=== PATIENT | female | born 1950 | race Caucasian/White ===

== ENCOUNTER 2019-08-27 07:58 | Inpatient (IN) ==
--- NOTE | 2019-08-09 16:00 | PAT Medication Instructions ---
Medication Instructions Date of Service August 09, 2019 Home Medications albuterol sulfate 0.63 mg INHALATION QID PRN albuterol sulfate 1 puff INHALATION Q6H PRN cholecalciferol (vitamin D3) [Vitamin D3] 5,000 unit PO QAM esomeprazole magnesium [Nexium] 20 mg PO QAM hydrochlorothiazide 12.5 mg PO QAM oxybutynin chloride 5 mg PO QAM risedronate 35 mg PO WK ASK your prescriber and surgeon risedronate 35 mg PO WK DO NOT take the morning of surgery cholecalciferol (vitamin D3) [Vitamin D3] 5,000 unit PO QAM hydrochlorothiazide 12.5 mg PO QAM oxybutynin chloride 5 mg PO QAM Take morning of surgery With a small sip of water, OTHERWISE NOTHING TO EAT OR DRINK AFTER MIDNIGHT: albuterol sulfate 0.63 mg INHALATION QID PRN (if needed) albuterol sulfate 1 puff INHALATION Q6H PRN (use if needed; please bring with you to hospital day of surgery if possible) esomeprazole magnesium [Nexium] 20 mg PO QAM Take evening before surgery albuterol sulfate 0.63 mg INHALATION QID PRN (if needed) albuterol sulfate 1 puff INHALATION Q6H PRN (if needed) Other Notes If you have any questions please call us at [phone] or [phone] or [phone] or [phone]
--- NOTE | 2019-08-10 13:22 | Anesthesiology Consultation ---
Date of Service August 10, 2019 Assessment & Plan (1) Encounter for pre-operative examination: *Possible difficult spinal due to body habitus and hx as below S/P L TKA 06/2014 @ [facility] -- SAB successful after 3 attempts. Chart Review Chart Review: Acceptable Risk for Surgery and Patient seen in Pre Admission Testing Teaching & Discussion Instructed NPO after midnight before surgery, except medications with 15 cc of water. Medication instructions provided according to the PAT guidelines. History Surgery Operation Date: 08/27/19 10:40 Proposed Procedures p Right Total Knee Arthroplasty - Shantanu Regalado DO Height/Weight Height: 5 ft 4 in Weight: 114 kg Allergies Allergy/AdvReac Type Severity Reaction Status Date / Time No Known Drug Allergies Allergy Unknown . Verified 08/05/19 07:58 Medications Home Medications Medication Instructions Recorded Confirmed Last Taken albuterol sulfate 0.63 mg INHALATION QID PRN 08/05/19 08/05/19 Unknown albuterol sulfate 1 puff INHALATION Q6H PRN 08/05/19 08/05/19 Unknown cholecalciferol (vitamin D3) 5,000 unit PO QAM 08/05/19 08/05/19 Unknown [Vitamin D3] esomeprazole magnesium [Nexium] 20 mg PO QAM 08/05/19 08/05/19 Unknown hydrochlorothiazide 12.5 mg PO QAM 08/05/19 08/05/19 Unknown oxybutynin chloride 5 mg PO QAM 08/05/19 08/05/19 Unknown risedronate 35 mg PO WK 08/05/19 08/05/19 Unknown Past Medical History Medical History (Updated 08/11/19 @ 08:34 by Josh Appiah) Chronic obstructive pulmonary disease No daily inhaler, uses albuterol inhalers mostly in winter months. GERD (gastroesophageal reflux disease) Hyperlipidemia Hypertension Osteoarthritis Urinary, incontinence, stress female Exercise / Class Metabolic Activity III < 4 Walking/Shop/Light housework (+SOB with ambulation over longer distances (grocery shopping) pt feels 2/2 knee pain and obesity, denies chest pain. 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 History of appendectomy History of cholecystectomy History of colonoscopy History of esophagogastroduodenoscopy (EGD) History of tonsillectomy and adenoidectomy History of tooth extraction History of total knee replacement LEFT + REVISION Past Anesthesia History No Hx of Anesthesia Complications and No Family Hx of Anesthesia Complications History of PONV No Hx of PONV and Hx of Motion Sickness Social History Smoking Status: Never smoker Do You Dip or Chew Tobacco: No Hx Alcohol Use: Yes alcohol intake frequency: holidays/special occasions only Hx Substance Use: No substance use type: does not use Review of Systems Pt denies any recent chest pain, shortness of breath above baseline, palpitations, cough, fever or URI. Physical Exam Vital Signs BP: 139/84 P: 87bpm SPO2: 95% RA T: 98.4 F R: 16 Constitutional + morbidly obese ENMT Mouth: + dentures (upper and lower) and + edentulous Thyromental Distance: < 3.5 Finger Breadths (3) Mallampati Class: III Neck normal visual inspection; neck extension not limited Respiratory normal respiratory effort Auscultation: lungs clear to auscultation bilaterally Cardiovascular Rate/Rhythm: regular rate and regular rhythm Heart Sounds: no murmur Vessels: no carotid bruit Extremities: + edema (trace pitting L>R) Testing Laboratory Results 08/10/19 13:36 08/10/19 13:36 PT 10.5 Seconds (9.0-12.0) 08/10/19 13:36 INR 1.0 (0.9-1.1) 08/10/19 13:36 APTT 27.1 Seconds (21.0-31.0) 08/10/19 13:36 Blood Type O Positive 08/10/19 13:36 Antibody Screen NEGATIVE 08/10/19 13:36 Electrocardiogram Date: 08/10/19 Findings: + NSR @ (77bpm) *unconfirmed Chest X-Ray Date: 08/10/19 Findings: + NAD Mild right hemidiaphragmatic elevation is unchanged.
--- NOTE | 2019-08-10 14:07 | XRay Report ---
XR chest Pre-admission PA/Lat HISTORY: 69 years-old Female pat preoperative exam. No acute chest complaints COMPARISON: Chest radiograph 06/03/2014 TECHNIQUE: PA and lateral views of the chest FINDINGS: Cardiomediastinal and hilar silhouettes are within normal limits. Mild right hemidiaphragmatic elevat ion is unchanged. There is no pneumothorax, pleural effusion, focal airspace consolidation or overt p ulmonary edema. Degenerative changes of the shoulders and spine. Surgical clips project over the uppe r abdomen. IMPRESSION: No acute process. The above report was generated using voice recognition software. It may contain grammatical, syntax o r spelling errors. Electronically signed by: Mele Herrera M.D. 08/10/2019 2:05 PM
[2019-08-10 14:33] LABS: Basophils # (auto) 0.03 K/uL (0-0.2); Basophils % (auto) 0.3 %; Eosinophils % (auto) 1.1 %; Hematocrit (blood only) 38.4 % (37-47); Hemoglobin 12.8 g/dL (12.0-16.0); Immature Granulocytes # (auto) 0.02 K/uL (0.00-0.02); Immature Granulocytes % (auto) 0.2 %; Lymphocytes # (auto) 2.23 K/uL (1.2-3.4); Lymphocytes % (auto) 25.5 %; Mean Corpuscular Hemoglobin 29.9 pg (25-34); Mean Corpuscular Hgb Conc 33.3 g/dL (32-36); Mean Corpuscular Volume 89.7 fL (80-100); Mean Platelet Volume 10.8 fL (7.4-10.4); Monocytes # (auto) 0.68 K/uL (0.11-0.59); Monocytes % (auto) 7.8 %; Neutrophils # (auto) 5.69 K/uL (1.4-6.5); Neutrophils % (auto) 65.1 %; Platelet Count 204 K/uL (130-400); RDW Coefficient of Variation 13.5 % (11.5-14.5); RDW Standard Deviation 44.3 fL (36.4-46.3); Red Blood Count 4.28 M/uL (4.2-5.4); White Blood Count 8.75 K/uL (4.8-10.8)
[2019-08-10 14:44] LABS: Partial Thromboplastin Time 27.1 Seconds (21.0-31.0); Prothrombin Time 10.5 Seconds (9.0-12.0)
[2019-08-10 15:04] LABS: BUN Creatinine Ratio 15.2 (10-20); Calcium 9.3 mg/dl (8.5-10.1); Creatinine Clr Calc Pharmacy 73.9 ml/min; Est GFR (African American) 76.6; Est GFR (Non-African American) 66.1; Potassium 3.8 mmol/L (3.5-5.1)
--- NOTE | 2019-08-26 07:59 | History & Physical Report ---
Date of Service August 26, 2019 Assessment & Plan (1) Osteoarthritis of right knee: We will proceed with a right total knee arthroplasty. Postoperatively she will be started on aspirin for DVT prophylaxis. She will be kept overnight in the hospital for postoperative medical management. She plans to go to outpatient physical therapy at [facility] in [place] upon discharge. Present on Admission?: Yes History of Present Illness Chief Complaint: Primary osteoarthritis of the right knee Primary Care Provider: Dank Benedict is a pleasant 69-year-old female who is been having chronic increasing right knee pain. X-rays and clinical examination have been diagnostic for primary osteoarthritis of the right knee. After failing conservative treatment, she has elected proceed with a right total knee arthroplasty. She does have a history of 9 surgeries to her left knee including multiple revision surgery. She is now doing well with her left knee. Her most recent revision was done in 2013. Allergies Allergy/AdvReac Type Severity Reaction Status Date / Time No Known Drug Allergies Allergy Unknown . Verified 08/05/19 07:58 Home Medications Home Medications Medication Instructions Recorded Confirmed Type albuterol sulfate 0.63 mg INHALATION QID PRN 08/05/19 08/05/19 History albuterol sulfate 1 puff INHALATION Q6H PRN 08/05/19 08/05/19 History cholecalciferol (vitamin D3) 5,000 unit PO QAM 08/05/19 08/05/19 History [Vitamin D3] esomeprazole magnesium [Nexium] 20 mg PO QAM 08/05/19 08/05/19 History hydrochlorothiazide 12.5 mg PO QAM 08/05/19 08/05/19 History oxybutynin chloride 5 mg PO QAM 08/05/19 08/05/19 History risedronate 35 mg PO WK 08/05/19 08/05/19 History Past Med/Surg History Medical History Chronic obstructive pulmonary disease No daily inhaler, uses albuterol inhalers mostly in winter months. 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: No Beliefs That Will Affect Care: None Current Living Situation: Spouse Feels Safe at Home: Yes Smoking Status: Never smoker Second Hand Exposure: Yes ; Hx Alcohol Use: Yes Hx Substance Use: No Review of Systems All systems reviewed & are unremarkable except as noted in HPI & below Physical Exam Constitutional: WD/WN, vitals as above Eyes: PERRL, conjunctivae normal, anicteric sclerae ENMT: external ear and nose normal, oropharynx normal Neck: trachea midline, no thyromegaly Respiratory: normal respiratory effort Cardiovascular: RRR, no murmur, no edema Gastrointestinal (Abdomen): normal bowel sounds, soft, nontender, no hepatosplenomegaly Musculoskeletal: On physical examination of the right knee there is a trace effusion. There is near full range of motion and no evidence of instability. There is significant tenderness palpation along the medial and lateral joint lines and over the distal femoral condyles. Psychiatric: A+Ox3, euthymic affect Results & Data Diagnostic Findings Radiographs of the right knee demonstrate advanced osteoarthritis with joint space narrowing osteophyte formation and [id number] articulation.
[~2019-08-27 07:58] MED LIST: ACETAMINOPHEN 500 MG TAB PO SCH; BUPIVACAINE 0.5 % 5 MG/1 ML PF 10ML VIAL ONE; BUPIVACAINE/EPINEPHRINE 0.25% 1:200,000 30 ML VIAL ONE; CEFAZOLIN 2000MG 2,000 MG/15 ML SYR IV SCH; DEXAMETHASONE SOD INJ 4 MG/ML VIAL ONE; FAMOTIDINE 20 MG TAB PO SCH; GABAPENTIN 300 MG CAP PO SCH; LR 500ML BOLUS, THEN 15ML/HR IV SCH; LR 60ML/HR IV SCH; ROPIVACAINE 0.5% HCL/PF 150 MG, BUPIVACAINE 0.5% MPF 30 ML, EPINEPHrine 30MG/30ML (OR U... INSTIL SCH; TRANEXAMIC ACID 1,000 MG **IV Intra-op IV SCH; TRANEXAMIC ACID 1,000 MG **IV Pre-op IV SCH; dexAMETHasone 4 MG TAB PO SCH
--- NOTE | 2019-08-27 08:06 | History & Physical Bridge Note ---
Date of Service August 27, 2019 History & Physical Bridge Note I have examined the patient, reviewed the History & Physical and in the interval since the performance of the History & Physical I have noted the following changes of clinical significance: no changes noted
[2019-08-27] MEDS ORDERED: MIDAZOLAM HCL 1 MG/ML 2ML VIAL ONE ×2 (09:37→10:51)
[2019-08-27] MEDS ORDERED: fentaNYL citrate 100 MCG/2 ML VIAL ONE (09:37)
[2019-08-27] MEDS ORDERED: PROPOFOL IV EMULSION 10 MG/ML 20 ML VIAL IV ONE (09:39)
[2019-08-27] MEDS ORDERED: LIDOCAINE HCL 2% 2 ML VIAL/AMP(20MG/ML) INFIL ONE (09:39)
[2019-08-27] MEDS ORDERED: ORTHO JOINT ANESTHETIC ONE (10:08)
[2019-08-27] MEDS ORDERED: ONDANSETRON INJ 2 MG/ML 2 ML VIAL IV PRN ×2 (10:54→13:45)
[2019-08-27] MEDS ORDERED: ePHEDrine sulfate 50 MG/ML AMP IV PRN (10:54)
[2019-08-27] MEDS ORDERED: fentaNYL citrate 100 MCG/2 ML VIAL IV PRN (10:54)
[2019-08-27] MEDS ORDERED: ATROPINE SULFATE 0.1 MG/ML 10ML SYR IV PRN (10:54)
--- NOTE | 2019-08-27 11:58 | Operative Report ---
PG Post Operative Report Pre & Post Diagnosis Operation Date: 08/27/19 09:20 Pre-Op Diagnosis: Right Knee Degenerative Joint Disease Post-Op Diagnosis: Right Knee Degenerative Joint Disease I identified the patient and participated in the time-out.: Yes Procedure Operation Date: 08/27/19 09:20 Actual Procedures p Right Total Knee Arthroplasty(Right) - Shantanu Regalado DO Surgeon Shantanu Regalado DO Cremator Shantanu Salinas PAC Estimated Blood Loss 20 Findings Consistent with Post-Op Diagnosis Specimens Right femoral and tibial bone Complications none Disposition Disposition: Recovery Room Jaquan Benedict is a pleasant 69-year-old female who presented my office with chronic increasing right knee pain. X-rays and clinical examination were diagnostic for primary osteoarthritis of the right knee. After failing conservative treatment, she elected to proceed with a right total knee arthroplasty. Description of Procedure Implants used: I used a [employer]omet Vanguard total knee arthroplasty system with a size 67.5 femur, 67 tibia, 31 patella, and a size 10 PS polyethylene bearing. All components were cemented in place with Palacos G cement. The patient arrived [facility] for the above procedure. There were seen in the preoperative holding area and the operative extremity was identified and signed. There were given a preoperative antibiotic, a spinal anesthetic and an adductor nerve block. There were taken back to the operating room and laid on the table in supine position. There were given basic sedation. The operative knee was then prepped and draped in sterile fashion. A timeout was done, and the patient and the operative extremity was properly identified. A midline incision was made directly over the patella. Dissection was taken down to the extensor mechanism. A subvastus arthrotomy was used. The medial retinaculum was released and the fat pad was mostly left intact. The knee was flexed and the ACL, PCL, and meniscus were removed. A drill was sent down the center of the femoral canal followed by an intramedullary arnulfo. Off that arnulfo a distal femoral cutting block was placed. 9 mm was resected off the distal femur at 5 of valgus. A posterior referencing AP sizing guide was then placed on the distal femur. The femur measured to be a size 67.5. 2 drill holes were placed in 3 of external rotation. A 4-in-1 cutting block was then impacted into place. Anterior posterior and chamfer cuts were then made. The posterior stabilizing box guide was then impacted into place and the box was resected for the posterior stabilizing component. The proximal tibia was then exposed. A drill was sent down the center of the tibial canal followed by an intramedullary arnulfo. Off that arnulfo a proximal tibial resection guide was placed. The proximal tibia was then resected. The tibia measured to be a size 67. The tibial plate was then placed in the appropriate rotation and the tibia was punched. The posterior aspect of the knee was then opened up and any additional meniscus fragments and osteophytes were removed. Trial components were then placed. I used a size 10 PS polyethylene insert. The knee was brought through a full range of motion and felt to be stable. The patella was then everted and 8 mm was resected off the posterior aspect of the patella. The patella measured to be a size 31. 3 peg holes were then drilled. A trial patella was placed. The knee was once again brought through a full range of motion and felt to be stable. Trial components were then removed. The surrounding soft tissues were injected with 100 cc of an orthopedic pain control cocktail. All components were then cemented into place with Palacos G cement. The final polyethylene insert was then snapped into place and the anterior bar was locked. Once cement was dry the tourniquet was deflated. Hemostasis was obtained. A dilute betadyne lavage was then done for 3 minutes. The joint was then irrigated with normal saline solution. The subvastus arthrotomy was then closed with #1 Vicryl suture. The skin was closed with 2-0 Vicryl, 3-0V lock suture, and maria m. A soft compressive dressing was placed. The patient was then transferred to a hospital bed and taken to the postanesthesia care unit in stable condition. They tolerated the procedure well. I attest to the content of the Intraoperative Record and any orders documented therein. Any exceptions are noted below.
--- NOTE | 2019-08-27 13:13 | XRay Report ---
XR knee RT 1 or 2V routine CLINICAL HISTORY: Surgical Post Op COMPARISON: May 2019 DISCUSSION: There are postsurgical changes of a total right knee arthroplasty and patellar resurfacin g. The femoral tibial components appear well seated. Overlying skin maria m are evident. There is The soft tissues consistent with recent surgery. IMPRESSION: Postsurgical changes of a total right knee arthroplasty. Electronically signed by: Edi Oneil M.D. 08/27/2019 1:12 PM
[2019-08-27] MEDS ORDERED: HYDROmorphone INJ 0.5 MG/0.5 ML SYR IV PRN (13:45)
[2019-08-27] MEDS ORDERED: ALBUTEROL HFA 8 GM INHALER INH PRN (13:45)
[2019-08-27] MEDS ORDERED: bisacodyL 10 MG SUPP PR PRN (13:45)
[2019-08-27] MEDS ORDERED: NALOXONE HCL 0.4 MG/1 ML VIAL/CARP IV PRN (13:45)
[2019-08-27] MEDS ORDERED: SODIUM CHLORIDE 0.9% 1000ML 1,000 ML IV SCH (13:45)
[2019-08-27] MEDS ORDERED: MAGNESIUM HYDROXIDE SUSP 30 ML UDC PO PRN (13:45)
[2019-08-27] MEDS ORDERED: METOCLOPRAMIDE HCL INJ 5 MG/ML 2 ML VIAL IV PRN (13:45)
[2019-08-27] MEDS ORDERED: ALBUTEROL 0.083% NEBU SOLN 3 ML VIAL INH PRN (14:05)
[2019-08-27] MEDS: KETOROLAC TROMETHAMINE 15 MG/ML VIAL IV SCH ×2 (14:28→20:09)
--- NOTE | 2019-08-27 14:55 | Anesthesiology Progress Note ---
Date of Service August 27, 2019 Anesthesia Post Procedure Vital Signs Vital Signs: Temp Pulse Resp BP Pulse Ox 08/27/19 14:30 36.3 C L 72 14 120/79 97 08/27/19 14:00 36.7 C 77 14 119/71 77 L 08/27/19 13:30 36.4 C L 82 14 121/72 96 08/27/19 13:20 79 14 114/74 97 08/27/19 13:10 36.4 C L 77 15 105/69 99 08/27/19 13:00 81 16 121/72 96 08/27/19 12:50 80 18 122/78 91 08/27/19 12:40 82 16 126/68 94 08/27/19 12:30 82 16 114/65 94 08/27/19 12:22 36.0 C L 88 16 118/61 97 08/27/19 09:00 36.7 C 98 H 148/96 H 99 Pain Intensity Right Knee: Pain Intensity: 7 Transfer of Care Handoff Completed per policy Notes Mental Status: alert / awake / arousable Patient Amnestic to Procedure: Yes Nausea / Vomiting: adequately controlled Pain: adequately controlled Airway Patency, RR, SpO2: stable & adequate BP & HR: stable & adequate Hydration State: stable & adequate Neuraxial Anesthesia: was administered and sensory block is resolving Anesthetic Complications: no major complications apparent and Pt Satisfied with anesthetic care
[2019-08-27] MEDS: CEFAZOLIN 2000MG 2,000 MG/15 ML SYR IV SCH ×2 (16:15→23:12)
[2019-08-27] MEDS: OXYCODONE HCL IR 5 MG TAB (IMMEDIATE RELEASE) PO PRN ×2 (17:26→21:53)
[2019-08-27] MEDS: ACETAMINOPHEN 500 MG TAB PO SCH (18:16)
[2019-08-27] MEDS: ASPIRIN 81 MG ECTAB PO SCH (20:09)
[2019-08-27] MEDS: DOCUSATE SODIUM 100 MG CAP PO SCH (20:09)
[2019-08-27] MEDS ORDERED: SENNA 8.6 MG TAB PO SCH (21:00)
[2019-08-27] MEDS ORDERED: PNEUMOCOCCAL Polysaccharide Vaccine 25mcg/0.5mL vial/Syr IM ONE (21:15)
[2019-08-27 23:36] VITALS: O2SAT 94
[2019-08-28] MEDS: KETOROLAC TROMETHAMINE 15 MG/ML VIAL IV SCH ×2 (01:53→07:39)
[2019-08-28 03:43] VITALS: BP 107/62; PULSE 81; TEMP 97.7
[2019-08-28] MEDS: ACETAMINOPHEN 500 MG TAB PO SCH (05:32)
[2019-08-28 06:33] LABS: Hematocrit (blood only) 33.9 % (37-47); Hemoglobin 10.8 g/dL (12.0-16.0); Mean Corpuscular Hemoglobin 29.1 pg (25-34); Mean Corpuscular Hgb Conc 31.9 g/dL (32-36); Mean Corpuscular Volume 91.4 fL (80-100); Platelet Count 222 K/uL (130-400); RDW Coefficient of Variation 13.1 % (11.5-14.5); RDW Standard Deviation 44.3 fL (36.4-46.3); Red Blood Count 3.71 M/uL (4.2-5.4); White Blood Count 12.27 K/uL (4.8-10.8)
[2019-08-28 07:09] LABS: BUN Creatinine Ratio 16.1 (10-20); Calcium 8.9 mg/dl (8.5-10.1); Est GFR (African American) 56.8; Potassium 4.1 mmol/L (3.5-5.1)
[2019-08-28] MEDS ORDERED: dexAMETHasone 10 MG in SYRINGE 0 ML IV SCH (08:00)
--- NOTE | 2019-08-28 08:05 | Orthopedic Progress Note ---
Date of Service August 28, 2019 Assessment & Plan (1) History of total right knee replacement: Overall she is doing very well. She not having much pain in her right knee. She did well with physical therapy this morning. The nursing staff will change her dressing today. She can be discharged home later today. She is on aspirin for DVT prophylaxis. She will get outpatient physical therapy and follow-up with orthopedics in 2 weeks. Present on Admission?: Yes Anson Benedict was seen and examined at bedside this morning. Overall she is doing very well. She is having some soreness in the knee. She already had physical therapy this morning. She is happy with her progress and has no complaints. Physical Exam Musculoskeletal: On physical examination of the left knee, the dressing has been reinforced. She has active dorsiflexion and foot plantarflexion of her right ankle. Her legs out in full extension with a pillow under her ankle. Results & Data Vital Signs (Past 12 Hours) Vital Signs Temp Pulse Resp BP Pulse Ox 08/28/19 07:50 36.5 C 81 17 107/62 94 08/28/19 07:32 36.4 C L 66 16 108/67 98 08/28/19 03:41 36.5 C 81 17 107/62 94 08/27/19 23:35 36.4 C L 65 17 127/73 94 Laboratory Results H & H 08/10/19 08/28/19 Range/Units 13:36 06:08 Hgb 12.8 10.8 L (12.0-16.0) g/dL Hct 38.4 33.9 L (37-47) % Coagulation 08/10/19 Range/Units 13:36 INR 1.0 (0.9-1.1) Diagnostic Findings Postoperative x-rays of the right knee show the prosthesis to be in anatomic alignment without any evidence of fracture, dislocation, or loosening. PG Care Time/CCT Total # of Minutes Spent Total Time Spent with Patient: Total time spent is greater than 50% in coordination of care (as documented) at patient's floor/unit and/or counseling patient:
--- NOTE | 2019-08-28 08:07 | Discharge Summary ---
Date of Service August 28, 2019 Admission HPI Per Admitting Provider Marichuy is a pleasant 69-year-old female who is been having chronic increasing right knee pain. X-rays and clinical examination have been diagnostic for primary osteoarthritis of the right knee. After failing conservative treatment, she has elected proceed with a right total knee arthroplasty. She does have a history of 9 surgeries to her left knee including multiple revision surgery. She is now doing well with her left knee. Her most recent revision was done in 2013. Principal Diagnosis Right total knee arthroplasty Discharge Data Allergies Allergy/AdvReac Type Severity Reaction Status Date / Time No Known Drug Allergies Allergy Unknown . Verified 08/27/19 08:57 Consultations 08/27/19 13:45 Consult Case Management - Discharge Planning Routine Procedures Performed Operation Date: 08/27/19 09:20 Actual Procedures p Right Total Knee Arthroplasty(Right) - Shantanu Regalado DO Ordered Studies 08/27/19 05:00 US - OR guided needle placemen Routine Hospital Course (1) History of total right knee replacement: On August 27, 2019 Marichuy arrived at [facility] and underwent a right total knee arthroplasty without complication. She had a spinal anesthetic. Postoperatively she was discharged to general orthopedic floors. Her hospital course is uneventful. On postop day #1 her H&H was stable and her pain was well controlled. She was able to ambulate well with physical therapy. She was then discharged to home with oral pain medications and aspirin for DVT prophylaxis. She will follow-up with orthopedics in 2 weeks. Total Time Total Time Spent Total Time Spent (In Minutes): 20 Discharge Plan Discharge Items Reason For Visit: Right Knee Degenerative Joint Disease Medications and DC Order Prescriptions: No Action hydrochlorothiazide 12.5 mg Capsule 12.5 mg PO QAM RF: 0 oxybutynin chloride 5 mg Tablet 5 mg PO QAM RF: 0 esomeprazole magnesium [Nexium] 20 mg Capsule,Delayed Release(Dr/Ec) 20 mg PO QAM RF: 0 risedronate 35 mg Tablet 35 mg PO WK RF: 0 cholecalciferol (vitamin D3) [Vitamin D3] 5,000 unit Tablet 5,000 unit PO QAM RF: 0 albuterol sulfate 0.63 mg/3 mL Solution For Nebulization 0.63 mg INHALATION QID PRN (Reason: SHORT OF BREATH) RF: 0 albuterol sulfate 90 mcg/actuation Hfa Aerosol Inhaler 1 puff INHALATION Q6H PRN (Reason: SHORT OF BREATH) RF: 0 Admission Data Admit Date/Time: 08/27/19 12:27 Attending Provider: Shantanu Regalado Admit Provider: Shantanu Regalado Primary Care Provider: Dank Tony Other Interventions: Discharge Summary Assessment (RN) Last Done: 08/28/19 07:50
[2019-08-28] MEDS: ASPIRIN 81 MG ECTAB PO SCH (08:44)
[2019-08-28] MEDS: DOCUSATE SODIUM 100 MG CAP PO SCH (08:44)
[2019-08-28] MEDS: OXYCODONE HCL IR 5 MG TAB (IMMEDIATE RELEASE) PO PRN (08:45)
[2019-08-28] MEDS ORDERED: hydroCHLOROthiazide 25 MG TAB PO SCH (09:00)
[2019-08-28] MEDS ORDERED: OXYBUTYNIN CHLORIDE 5 MG TAB PO SCH (09:00)
[2019-08-28] MEDS ORDERED: MULTIVITAMIN TAB PO SCH (09:00)
--- NOTE | 2019-08-28 10:12 | Anesthesiology Progress Note ---
Date of Service August 28, 2019 Anesthesia Post Procedure Vital Signs Vital Signs: Temp Pulse Pulse Resp BP Pulse Ox 08/28/19 07:50 36.5 C 81 17 107/62 94 08/28/19 07:32 36.4 C L 66 16 108/67 98 08/28/19 03:41 36.5 C 81 17 107/62 94 08/27/19 23:35 36.4 C L 65 17 127/73 94 08/27/19 19:28 36.4 C L 72 17 121/74 95 08/27/19 16:53 113/75 08/27/19 16:36 36.3 C L 76 17 151/77 H 95 08/27/19 15:39 36.3 C L 78 15 127/70 98 08/27/19 14:30 36.3 C L 72 14 120/79 97 08/27/19 14:00 36.7 C 77 14 119/71 77 L 08/27/19 13:30 36.4 C L 82 14 121/72 96 08/27/19 13:20 79 14 114/74 97 08/27/19 13:10 36.4 C L 77 15 105/69 99 08/27/19 13:00 81 16 121/72 96 08/27/19 12:50 80 18 122/78 91 08/27/19 12:40 82 16 126/68 94 08/27/19 12:30 82 16 114/65 94 08/27/19 12:22 36.0 C L 88 16 118/61 97 Notes Mental Status: alert / awake / arousable Nausea / Vomiting: adequately controlled Pain: adequately controlled Airway Patency, RR, SpO2: stable & adequate BP & HR: stable & adequate Hydration State: stable & adequate Neuraxial Anesthesia: was administered and sensory block resolved Anesthetic Complications: no major complications apparent and Pt Satisfied with anesthetic care
[2019-08-29] MEDS ORDERED: RISEDRONATE SODIUM 35 MG TAB PO SCH (07:30)
== END 2019-08-28 12:00 | disposition home or self-care (01) | DRG 470 ==
LOC: ASU 07:58 → 3E 12:27
DX: Z23 Encounter for immunization; N39.3 Stress incontinence (female) (male); Z79.899 Other long term (current) drug therapy; J44.9 Chronic obstructive pulmonary disease, unspecified; Z96.652 Presence of left artificial knee joint; Z79.83 Long term (current) use of bisphosphonates; I10 Essential (primary) hypertension; M17.11 Unilateral primary osteoarthritis, right knee; Z89.421 Acquired absence of other right toe(s)